=== PATIENT | female | born 1960 | race African-American/Black ===

== ENCOUNTER 2017-08-04 09:15 | Inpatient (IN) | payer OTHER ==
[~2017-08-04] VITALS: Ht 167.6 cm; Wt 117.0 kg
[2017-08-10] MEDS ORDERED: CODE1TAB37 PO (09:05)
== END 2017-08-10 09:58 | disposition home or self-care (01) | DRG 743 ==
LOC: O/R 08-07 05:48 → SURG-SUITE 08-07 05:48 → SURG 08-07 08:30 → RECOVERY 08-07 09:15 → SURG-SUITE 08-07 14:50
PROVIDERS: Obstetrics & Gynecology
PROC: 0UT70ZZ Resection of Bilateral Fallopian Tubes, Open Approach (ICD-10-PCS; 2017-08-07)
PROC: 0UT20ZZ Resection of Bilateral Ovaries, Open Approach (ICD-10-PCS; 2017-08-07)
PROC: 0TJB8ZZ Inspection of Bladder, Via Natural or Artificial Opening Endoscopic (ICD-10-PCS; 2017-08-07)
PROC: 0UT70ZZ Resection of Bilateral Fallopian Tubes, Open Approach (ICD-10-PCS; principal; 2017-08-07 08:30)
DX: D25.1 Intramural leiomyoma of uterus (principal); D25.0 Submucous leiomyoma of uterus; D25.2 Subserosal leiomyoma of uterus; N84.0 Polyp of corpus uteri; N80.2 Endometriosis of fallopian tube; N83.292 Other ovarian cyst, left side; N83.291 Other ovarian cyst, right side; D50.0 Iron deficiency anemia secondary to blood loss (chronic); N92.0 Excessive and frequent menstruation with regular cycle